=== PATIENT | male | born 2000 | race Caucasian/White ===

== ENCOUNTER 2021-02-07 22:58 | Emergency (ER) | payer SELFPAY ==
[~2021-02-07] VITALS: Ht 188 cm; Wt 90.0 kg
[2021-02-08] MEDS ORDERED: ONDANSETRON HCL 4MG/2ML INJ IV STA (00:21)
[2021-02-08] MEDS ORDERED: SODIUM CHLORIDE 0.9% 1,000 ML IV ONE (00:30)
[2021-02-08 00:59] LABS: HEMATOCRIT. 47.1 % (42.0-52.0); MEAN CORPUSCULAR HEMOGLOBIN 29.6 pg (28.0-32.0); MEAN CORPUSCULAR VOLUME 87.4 fL (80.0-94.0); MEAN PLATELET VOLUME 9.7 fl (7.4-10.4); PLATELET 280 x1000/uL (130-400); RED BLOOD CELL COUNT 5.39 mill/uL (4.7-6.1); RED CELL DISTRIBUTION WIDTH 13.6 % (11.6-14.6)
[2021-02-08 01:02] LABS: CHLORIDE 106 mEq/L (98-107)
[2021-02-08 01:05] LABS: ETHANOL BLOOD < 10 mg/dL
[2021-02-08 01:30] LABS: *BENZODIAZEPINES SCREEN URINE PRESUMTIVE POSITIVE (NEGATIVE); *COCAINE SCREEN URINE NEGATIVE (NEGATIVE)
[2021-02-08 01:31] LABS: CANNABINOID URINE SCREEN PRESUMTIVE POSITIVE (NEGATIVE); METHADONE URINE SCREEN NEGATIVE (NEGATIVE); OPIATES URINE SCREEN NEGATIVE (NEGATIVE); PHENCYCLIDINE URINE SCREEN NEGATIVE (NEGATIVE)
[2021-02-08 01:32] LABS: *AMPHETAMINES SCREEN URINE NEGATIVE (NEGATIVE); *BARBITURATES SCREEN URINE NEGATIVE (NEGATIVE)
[2021-02-08 01:40] LABS: PLATELET ESTIMATE NORMAL
[2021-02-08 02:38] VITALS: BP 107/46
[2021-02-08] MEDS ORDERED: NALO4SPR BOTHNSTRLS (03:03)
== END 2021-02-08 03:57 | disposition home or self-care (01) ==
LOC: ER 22:58
DX: T40.991A Poisoning by other psychodysleptics [hallucinogens], accidental (unintentional), initial encounter (principal); F16.129 Hallucinogen abuse with intoxication, unspecified; R41.82 Altered mental status, unspecified; R00.0 Tachycardia, unspecified; F41.9 Anxiety disorder, unspecified; F12.90 Cannabis use, unspecified, uncomplicated; Y92.89 Other specified places as the place of occurrence of the external cause
CPT/HCPCS: 36415; 80053; 80305; 80320; 85025; 93005; 96360; 99284; J7030; J2405; G0480